=== PATIENT | female | born 1980 | race African-American/Black ===

== ENCOUNTER 2024-02-24 17:42 | Emergency (ER) | payer MEDICAID ==
[~2024-02-24] VITALS: Ht 162.6 cm; Wt 82.0 kg
[2024-02-24 17:46] VITALS: O2SAT 100
[2024-02-24] MEDS: OLANZAPINE 5MG TABLET ODT PO ONE (21:30)
[2024-02-24 21:58] LABS: BASOPHILS % 0.4 % (0.0-2.0); EOSINOPHILS % 1.7 % (0.0-5.0); HEMATOCRIT. 37.3 % (36.0-48.0); HEMOGLOBIN. 12.5 g/dL (12.0-16.0); LYMPHOCYTES % 35.5 % (20.0-50.0); MEAN CORPUSCULAR HEMOGLOBIN 30.4 pg (28.0-32.0); MEAN CORPUSCULAR HGB CONC 33.4 g/dL (31.0-37.0); MEAN CORPUSCULAR VOLUME 91.1 fL (81.0-99.0); MEAN PLATELET VOLUME 7.4 fl (7.4-10.4); MONOCYTES % 7.4 % (2.0-8.0); PLATELET 284 x1000/uL (130-400); RED CELL DISTRIBUTION WIDTH 13.9 % (11.6-14.6); WHITE BLOOD COUNT 10.1 x1000/uL (4.5-11.0)
[2024-02-24 22:03] LABS: CARBON DIOXIDE 27 mEq/L (21-32); CHLORIDE 106 mEq/L (98-107); POTASSIUM 4.2 mEq/L (3.5-5.1); SODIUM 140 mEq/L (136-145)
[2024-02-24 22:04] LABS: CALCIUM 9.8 mg/dL (8.7-10.4)
[2024-02-24 22:09] LABS: CREATININE 0.6 mg/dL (0.6-1.0); ETHANOL BLOOD 16 mg/dL (<10); GLUCOSE 84 mg/dL (70-105); UREA NITROGEN BLOOD 10 mg/dL (9-23)
[2024-02-24 22:11] LABS: ACETAMINOPHEN 5 ug/mL (10-30)
[2024-02-24 22:17] LABS: HCG SCREEN NEGATIVE
[2024-02-25] MEDS: OLANZAPINE 5MG TABLET ODT PO NR (00:48)
[2024-02-25 10:45] LABS: CLARITY URINE CLEAR (CLEAR); COLOR URINE YELLOW (YELLOW); GLUCOSE URINE NEGATIVE (NEGATIVE); KETONES URINE NEGATIVE (NEGATIVE); LEUKOCYTE ESTERASE URINE NEGATIVE (NEGATIVE); NITRITE URINE NEGATIVE (NEGATIVE); OCCULT BLOOD URINE NEGATIVE (NEGATIVE); PH URINE 7.5 (4.5-8.0); PROTEIN URINE NEGATIVE (NEGATIVE); UROBILINOGEN URINE 0.2 E.U./dL (0.2-1.0)
[2024-02-25 10:59] LABS: *AMPHETAMINES SCREEN URINE PRESUMPTIVE POSITIVE (NEGATIVE); *BARBITURATES SCREEN URINE NEGATIVE (NEGATIVE); *BENZODIAZEPINES SCREEN URINE NEGATIVE (NEGATIVE); *COCAINE SCREEN URINE NEGATIVE (NEGATIVE); CANNABINOID URINE SCREEN NEGATIVE (NEGATIVE); METHADONE URINE SCREEN NEGATIVE (NEGATIVE); OPIATES URINE SCREEN NEGATIVE (NEGATIVE); PHENCYCLIDINE URINE SCREEN NEGATIVE (NEGATIVE)
[2024-02-25 11:00] LABS: ECSTASY MDMA SCREEN URINE NEGATIVE (NEGATIVE)
[2024-02-25 13:01] VITALS: BP 148/99; PULSE 97; RESP 16; TEMP 36.78072; O2SAT 100
== END 2024-02-25 22:10 ==
LOC: ER 17:42
DX: R46.1 Bizarre personal appearance (principal)
CPT/HCPCS: 36415; 80048; 80305; 80307; 80320; 80329; 81003; 81025; 84703; 85025; 87426; 99285; G0480